=== PATIENT | male | born 1985 | race Caucasian/White ===

== ENCOUNTER → 2016-08-23 | Outpatient (REF) | payer OTHER, MEDICAID | END | disposition home or self-care (01) | LOC: M SFHCPLAZ 10:37 | PROVIDERS: ATTEND Family Medicine | DX: Z53.8 Procedure and treatment not carried out for other reasons (principal) ==

== ENCOUNTER → 2017-01-31 | Outpatient (CLI) | payer OTHER, MEDICAID ==
--- NOTE | 2017-01-31 13:28 | REP ---
LUMBOSACRAL SPINE SERIES: Five views of the lumbosacral spine are performed. There is no compression fracture. There is no malalignment with normal lumbar lordosis. Disc spaces are relatively well preserved. There is sclerosis at the facets of L4-5 and L5-S1. The posterior elements are intact. IMPRESSION: Mild degenerative changes posterior facet joints L4-5 and L5-S1. Signed by Raphael Wilson MD 01/31/2017 03:27 P
== END ==
LOC: M SMT 11:58
PROVIDERS: ATTEND Nurse Practitioner Family
DX: M54.42 Lumbago with sciatica, left side (principal)

== ENCOUNTER → 2017-08-18 | Outpatient (REF) | payer OTHER ==
[2017-08-18 16:10] LABS: TOTAL 25(OH) VITAMIN D 26.8 NG/ML (30.0-100.0)
== END ==
LOC: M SFHCPLAZ 12:53
DX: R53.82 Chronic fatigue, unspecified (principal)